=== PATIENT | female | born 1975 | race Caucasian/White ===

== ENCOUNTER 2022-01-19 02:05 | Emergency (ER) | payer OTHER, SELFPAY ==
--- NOTE | 2022-01-19 02:27 | ED_ITS ---
HPI - General Adult General Chief complaint: Psychiatric Symptoms Stated complaint: ETOH, SI Time Seen by Provider: 01/19/22 02:05 History of Present Illness HPI narrative: 46-year-old woman brought in by medics acutely intoxicated reportedly drinking a 5th of alcohol today along with at least 40 mg of a double THC increasingly agitated complaining she wants to kill yourself guns available in house and 3 superficial wounds on her left forearm. She reportedly has a who was no t immediately available. On arrival police were involved and the gun was secured by them. She reportedly was talking to her mother on the phone who will come get her when she has been further evaluated is cleared for discharge. She has a history of bipolar disorder and takes Seroquel and amitriptyline. She is perseverating and uncooperative significantly agitated additional history is not available this time Related Data Allergies Allergy/AdvReac Type Severity Reaction Status Date / Time morphine Allergy Verified 01/19/22 02:54 aspirin AdvReac Verified 01/19/22 02:54 latex AdvReac Verified 01/19/22 02:54 Review of Systems Review of Systems ROS Unobtainable: Unobtainable due to mental status/LOC Patient History Medical History (Updated 01/19/22 @ 06:22 by Oksana Tanner MD) Bipolar 1 disorder Social History Smoking Status: Unknown if ever smoked Exam Initial Vital Signs Initial Vital Signs: Vital Signs Pulse Rate 94 H 01/19/22 02:35 Respiratory Rate 18 01/19/22 02:35 Pulse Oximetry 98 01/19/22 02:35 Oxygen Delivery Method 01/19/22 02:35 General: Acutely intoxicated, having difficulty standing and even sitting. HEENT: Moist mucous membranes, normal sclera with reactive pupils, Neck: No JVD, supple Respiratory: Lungs are clear to auscultation, no wheezing no rales no rhonchi. Full and symmetrical air movement Cardiac: Regular rate and rhythm no murmurs no bruits Abdomen: Soft, nontender, good bowel tones, no flank pain Skin: Warm and dry, no rashes Neurologic: acutely intoxicated, difficulty stable exam herself sitting or standing moving all extremities Extremities: No trauma, well perfused Psych: Cooperative, appropriate insight and affect Course Orders Ordered: ED Orders 01/19/22 02:20 UA Complete [Urinalysis and Microscopic] Stat urine tox [Urine Drug Screen, Rapid] Stat 01/19/22 02:24 COVID19 -Nasal RAPID/Pre-Proc Stat 01/19/22 04:46 Complete Blood Count AUTO DIFF Stat Comprehensive Metabolic Panel Stat ETOH [Ethanol (ETOH)] Stat Thyroid Stimulating Hormone Stat Discontinued Medications Haloperidol (Haloperidol 5 Mg/Ml Vial) 10 mg IM NOW ONE Stop: 01/19/22 02:27 Last Admin: 01/19/22 03:40 Dose: Not Given Documented By: EB Vital Signs Vital signs: Vital Signs - 8 hr 01/19/22 02:35 Pulse Rate 94 H Respiratory Rate 18 Pulse Oximetry 98 Oxygen Delivery Method Room Air Medical Decision Making Lab Data Result diagrams: 01/19/22 04:46 01/19/22 04:46 Labs: Lab Results 01/19/22 01/19/22 01/19/22 Range/Units 02:20 02:20 04:46 WBC 11.8 H (4.5-11.0) X10^3/uL RBC 4.99 (4.0-5.2) X10^6/uL Hgb 13.8 (12.0-16.0) g/dL Hct 40.5 (36-46) % MCV 81.1 (80-100) fL MCH 27.7 (26-34) PG MCHC 34.1 (30-36) % RDW 14.8 (11.6-14.8) % Plt Count 309 (150-400) X10^3/uL Neut % (Auto) 70.8 (50-75) % Lymph % (Auto) 21.5 L (25-40) % Collin % (Auto) 5.9 (3-14) % Eos % (Auto) 1.3 L (2-4) % Baso % (Auto) 0.5 (0-2) % Neut # (Auto) 8400 H (0914-2702) /uL Lymph # (Auto) 2500 (4769-3959) /uL Collin # (Auto) 700 (0-900) /uL Eos # (Auto) 200 (0-450) /uL Baso # (Auto) 100 (0-100) /uL Sodium (137-145) mmol/L Potassium (3.4-5.1) mmol/L Chloride (98-107) mmol/L Carbon Dioxide (22-32) mmol/L BUN (7-17) mg/dL Creatinine (0.52-1.04) mg/dL Estimated GFR (>60) mL/min BUN/Creatinine Ratio (6-22) Glucose (70-100) mg/dL Calcium (8.4-10.2) mg/dL Total Bilirubin (0.2-1.3) mg/dL AST (14-36) IU/L ALT (<35) IU/L Alkaline Phosphatase (38-126) U/L Total Protein (6.3-8.2) g/dL Albumin (3.5-5.0) g/dL Globulin (1.7-4.1) g/dL Albumin/Globulin Ratio (1.0-2.8) TSH (0.47-4.68) uIU/mL Urine Color Yellow Urine Appearance Clear Urine pH 7.0 (4.5-8.0) Ur Specific [place] <=1.005 (1.000-1.035) Urine Protein Negative (Negative) Urine Glucose (UA) Negative (Negative) g/dL Urine Ketones Negative (NEGATIVE) Urine Occult Blood Negative (Negative) Urine Nitrate Negative (Negative) Urine Bilirubin Negative (NEGATIVE) Urine Urobilinogen 0.2 (0.2) E.U./dL Ur Leukocyte Esterase Negative (NEGATIVE) Urine RBC None seen (0-5/HPF) Urine WBC None seen (0-5/HPF) Urine Bacteria None seen (None) Ur Culture Indicated? Cult not indicated U Opiates 300ng/mL cut Negative (Negative) Ur Oxycodone Screen Negative (Negative) Urine Methadone Screen Negative (Negative) Ur Barbiturates Screen Negative (Negative) U Tricyclic Antidepress Positive H (Negative) Ur Phencyclidine Scrn Negative (Negative) Ur Amphetamines Screen Negative (Negative) U Methamphetamines Scrn Negative (Negative) Ur MDMA Scrn (Ecstasy) Negative (Negative) U Benzodiazepines Scrn Negative (Negative) Urine Cocaine Screen Negative (Negative) U Marijuana (THC) Screen Positive H (Negative) Ethyl Alcohol ( - 10) mg/dL 01/19/22 01/19/22 01/19/22 Range/Units 04:46 04:46 04:46 WBC (4.5-11.0) X10^3/uL RBC (4.0-5.2) X10^6/uL Hgb (12.0-16.0) g/dL Hct (36-46) % MCV (80-100) fL MCH (26-34) PG MCHC (30-36) % RDW (11.6-14.8) % Plt Count (150-400) X10^3/uL Neut % (Auto) (50-75) % Lymph % (Auto) (25-40) % Collin % (Auto) (3-14) % Eos % (Auto) (2-4) % Baso % (Auto) (0-2) % Neut # (Auto) (3336-5835) /uL Lymph # (Auto) (5950-5729) /uL Collin # (Auto) (0-900) /uL Eos # (Auto) (0-450) /uL Baso # (Auto) (0-100) /uL Sodium 141 (137-145) mmol/L Potassium 4.3 (3.4-5.1) mmol/L Chloride 104 (98-107) mmol/L Carbon Dioxide 30 (22-32) mmol/L BUN 9 (7-17) mg/dL Creatinine 0.89 (0.52-1.04) mg/dL Estimated GFR > 60 (>60) mL/min BUN/Creatinine Ratio 10.1 (6-22) Glucose 117 H (70-100) mg/dL Calcium 9.3 (8.4-10.2) mg/dL Total Bilirubin 0.4 (0.2-1.3) mg/dL AST 17 (14-36) IU/L ALT 13 (<35) IU/L Alkaline Phosphatase 140 H (38-126) U/L Total Protein 8.0 (6.3-8.2) g/dL Albumin 4.5 (3.5-5.0) g/dL Globulin 3.5 (1.7-4.1) g/dL Albumin/Globulin Ratio 1.3 (1.0-2.8) TSH 3.03 (0.47-4.68) uIU/mL Urine Color Urine Appearance Urine pH (4.5-8.0) Ur Specific [place] (1.000-1.035) Urine Protein (Negative) Urine Glucose (UA) (Negative) g/dL Urine Ketones (NEGATIVE) Urine Occult Blood (Negative) Urine Nitrate (Negative) Urine Bilirubin (NEGATIVE) Urine Urobilinogen (0.2) E.U./dL Ur Leukocyte Esterase (NEGATIVE) Urine RBC (0-5/HPF) Urine WBC (0-5/HPF) Urine Bacteria (None) Ur Culture Indicated? U Opiates 300ng/mL cut (Negative) Ur Oxycodone Screen (Negative) Urine Methadone Screen (Negative) Ur Barbiturates Screen (Negative) U Tricyclic Antidepress (Negative) Ur Phencyclidine Scrn (Negative) Ur Amphetamines Screen (Negative) U Methamphetamines Scrn (Negative) Ur MDMA Scrn (Ecstasy) (Negative) U Benzodiazepines Scrn (Negative) Urine Cocaine Screen (Negative) U Marijuana (THC) Screen (Negative) Ethyl Alcohol < 10 ( - 10) mg/dL Point of Care Testing Test Results Negative Point of care testing: Point of Care Testing Test Results Negative MDM Narrative Medical decision making narrative: 46-year-old woman comes in significantly intoxicated with dramatic affect of behavior. Had gotten quite upset with suicidal ideation self cutting concerns with having fiber arms in the house. After sobering for a number of hours in the emergency department she is re-examined. Alcohol level is actually 0 x 5 a.m.. Suspect that there is far more THC involved with the number of edibles that she ate rather than acute alcohol intoxication. This morning she is absolutely appropriate, remorseful, recognizes this is exactly why she does not use marijuana or alcohol and has not done so for the last 13 years. Good insight, no acute psychosis, nonpressured speech, good eye contact. She is unequivocal and her denial of suicidal ideation and slightly inappropriately request to call her mother so that she can be discharged home. She does have outpatient follow-up is not currently suicidal and is safe for home discharge Discharge Plan Departure Patient Disposition: Home Clinical Impression: Acute situational disturbance, Cannabis intoxication Instructions: DI for Suicidal Ideation-Adult Activity Restrictions/Additional Instructions: I Am sorry that you ended up needing to come to the emergency room last night but I am happy that you are safe this morning. You did cut your left arm last night. There are 3 superficial scratches that will need wound care but that do not need stitches. You are also threatening suicide and your guns were removed from your home last night by police for safe keeping. This morning, who seem quite appropriate and recognize that the actions of last night are the reason that you typically avoid both alcohol marijuana. Should you feel like you want to hurt yourself again or feel like you need to be acutely intoxicated and would prefer to avoid that, please feel free to return to the emergency department and we can help.
[2022-01-19 02:32] LABS: Appearance Urine UA CLEAR; Bilirubin Urine UA NEGATIVE (NEGATIVE); Color Urine UA YELLOW; Glucose Urine UA NEGATIVE (Negative); Ketones Urine UA NEGATIVE (NEGATIVE); Leukocyte Esterase Urine UA NEGATIVE (NEGATIVE); Nitrite Urine UA NEGATIVE (Negative); Occult Blood Urine UA NEGATIVE (Negative); Protein Urine UA NEGATIVE (Negative); Specific Gravity Urine UA <=1.005 (1.000-1.035); Urobilinogen Urine UA 0.2 E.U./dL (0.2)
--- NOTE | 2022-01-19 02:34 | PC.NURSE ---
Pt screaming at this RN to give her her phone back. Pt informed that the provider told her that she is not allowed to have her phone at this time. Pt clothes and phone placed in a labeled belongings bag and secured. Pt soon fell back asleep. Medications were ordered to help pt calm down. These meds are held at this time as pt is sleeping. Per provider, pt is to be left to sleep but placed on pulse oximetry. Pt would not cooperative enough to answer triage questions when she first arrived.
[2022-01-19 02:35] VITALS: PULSE 94; RESP 18; O2SAT 98
[2022-01-19 02:40] LABS: UR Morphine/Opiate cutoff 300 Negative (Negative); Ur Creatinine 20 (Normal); Ur Specific Gravity <1.005 (Normal); Urine Amphetamines Negative (Negative); Urine Barbiturates Negative (Negative); Urine Benzodiazepines Negative (Negative); Urine Cocaine Negative (Negative); Urine MDMA Negative (Negative); Urine Methadone Negative (Negative); Urine Methamphetamines Negative (Negative); Urine Oxycodone Negative (Negative); Urine Phencyclidine Negative (Negative); Urine Tetrahydrocannabinol Positive (Negative); Urine Tricyclic Antidepressant Positive (Negative); Urine pH 7 (Normal)
--- NOTE | 2022-01-19 02:44 | PC.NURSE ---
Pt assisted with using the bedside commode by multiple female staff members. Pt then was changed into green safety scrubs and her belongings removed from her room. Pt in ligature free room, except for the ER stretcher.
[2022-01-19 02:45] LABS: Bacteria Urine None Seen; Culture Indicated Urine Cult Not Indicated; RBC Urine None Seen (0-5/HPF); WBC Urine None Seen (0-5/HPF)
[2022-01-19 04:59] LABS: Add Manual Diff / Slide Review NO; Basophils Absolute Auto 100 /uL (0-100); Basophils Percent Auto 0.5 % (0-2); Eosinophils Absolute Auto 200 /uL (0-450); Eosinophils Percent Auto 1.3 % (2-4); Hematocrit 40.5 % (36-46); Hemoglobin 13.8 g/dL (12.0-16.0); Lymphocytes Absolute Auto 2500 /uL (1100-4500); Lymphocytes Percent Auto 21.5 % (25-40); Mean Corpuscular HGB Conc 34.1 % (30-36); Mean Corpuscular Hemoglobin 27.7 PG (26-34); Mean Corpuscular Volume 81.1 fL (80-100); Monocytes Absolute Auto 700 /uL (0-900); Monocytes Percent Auto 5.9 % (3-14); Neutrophils Absolute Auto 8400 /uL (1500-7000); Neutrophils Percent Auto 70.8 % (50-75); Platelet Count 309 X10^3/uL (150-400); Red Blood Cell Count 4.99 X10^6/uL (4.0-5.2); Red Cell Distribution Width 14.8 % (11.6-14.8); White Blood Cell Count 11.8 X10^3/uL (4.5-11.0)
--- NOTE | 2022-01-19 05:05 | PC.NURSE ---
Pt called this RN into room to apologize for her behavior earlier. Pt states that she will never let herself get into this situation again. Pt very calm and cooperative and pleasantly interactive with staff. Pt provided with water per request. Pt allowed blood to be obtained by lab for analysis. Pt asked or her phone and per provider, pt can get her phone once her blood is resulted and the physician will talk to her at that time as well.
[2022-01-19 05:08] LABS: Alanine Aminotransferase 13 IU/L (<35); Albumin 4.5 g/dL (3.5-5.0); Albumin Globulin Ratio 1.3 (1.0-2.8); Alkaline Phosphatase 140 U/L (38-126); Aspartate Aminotransferase 17 IU/L (14-36); BUN Creatinine Ratio 10.1 (6-22); Bilirubin Total 0.4 mg/dL (0.2-1.3); Blood Urea Nitrogen 9 mg/dL (7-17); Calcium 9.3 mg/dL (8.4-10.2); Carbon Dioxide 30 mmol/L (22-32); Chloride 104 mmol/L (98-107); Estimated Glomerular Filt Rate > 60 mL/min (>60); Globulin 3.5 g/dL (1.7-4.1); Glucose 117 mg/dL (70-100); HEMOLYSIS < 15 (0-50); Potassium 4.3 mmol/L (3.4-5.1); Sodium 141 mmol/L (137-145)
[2022-01-19 06:05] LABS: Ethanol (ETOH) < 10 mg/dL
[2022-01-19 06:06] LABS: Thyroid Stimulating Hormone 3.03 uIU/mL (0.47-4.68)
[2022-01-19 07:23] VITALS: BP 135/84; PULSE 95; RESP 18; O2SAT 98
--- NOTE | 2022-01-24 11:04 | CM.SWNOTE ---
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 Reviewed physician notes and updated Herlinda. Herlinda maoative. JW
== END 2022-01-19 07:24 | disposition home or self-care (01) ==
PROVIDERS: Emergency Provider Emergency Medicine
DX: F43.0 Acute stress reaction (principal); F12.929 Cannabis use, unspecified with intoxication, unspecified; R45.851 Suicidal ideations
CPT/HCPCS: 36415; 80053; 80305; 80320; 81001; 81025; 84443; 85025; 99283